=== PATIENT | male | born 1985 | race Caucasian/White ===

== ENCOUNTER 2019-06-06 16:02 | Emergency (ER) | payer MEDICAID ==
[~2019-06-06] VITALS: Ht 167.6 cm; Wt 109.1 kg
--- NOTE | 2019-06-06 16:30 | NUR ---
PT TAKEN TO ROOM 14 THAT HAS BEEN PREPARED FOR AN SI/MENTALHEALTH PT. SECURITY REMOVES A KNIFE FROM PT'S BELONGINGS. PT PLACED IN GREEN SCRUBS. GEORGE MELLO IN ROOM TO SYLVIA PT. PT WAS RECENTLY DC'D FROM [employer] [facility] AND WAS TOLD THAT THEY WOULD GIVE HIM A BUS TICKET BACK TO [place] WHERE HE IS FROM AND WHERE HE HAS A SUPPORT SYSTEM. PT WENT TO [facility] TO [place] T[place] HIS RX BUT THE DOCTOR HADNT CALLED IN THE RX OR THEY WERE NOT READY FOR PICKUP. PT THEN TOOK EIGHT OF HIS ADDERALL XL 20MG AT 3PM. PT STATES HE IS BIPOLAR AND DOES HAVE A HX OF SI. FINAL CANOE INSPECTOR IN ROOM TO DRAW BLOOD.
[2019-06-06 16:46] LABS: BASOPHILS # (AUTO) 0.1 X10'3 (0-0.2); EOSINOPHILS # (AUTO) 0.1 X10'3 (0-0.9); MEAN PLATELET VOLUME 8.1 FL (7.4-10.4); MONOCYTES # (AUTO) 0.8 X10'3 (0-0.9); PLATELET COUNT 232 X10'3 (140-440)
[2019-06-06 16:48] LABS: EOSINOPHILS % (AUTO) 0.8 % (0-6); HEMATOCRIT 51.9 % (42.0-52.0); LYMPHOCYTES # (AUTO) 2.8 X10'3 (1.1-4.8); LYMPHOCYTES % (AUTO) 22.8 % (21-51); MEAN CORPUSCULAR HEMOGLOBIN 32.8 PG (27.0-31.0); MEAN CORPUSCULAR HGB CONC 35.1 g/dL (33.0-36.5); MEAN CORPUSCULAR VOLUME 93.6 FL (78-98); MONOCYTES % (AUTO) 6.6 % (2-12); NEUTROPHILS # (AUTO) 8.3 X10'3 (1.8-7.7); NEUTROPHILS % (AUTO) 68.8 % (42-75); RED BLOOD COUNT 5.55 X10'6 (4.70-6.10); RED CELL DISTRIBUTION WIDTH 13.4 % (11.5-14.5); WHITE BLOOD COUNT 12.1 X10'3 (4.5-11.0)
[2019-06-06 16:51] LABS: HEMOGLOBIN 18.2 g/dl (14.0-17.9)
[2019-06-06 17:03] LABS: ALANINE AMINOTRANSFERASE 56 U/L (12-78); ALBUMIN 4.1 G/DL (3.4-5.0); ALBUMIN/GLOBULIN RATIO 1.1 (1.1-1.5); ALKALINE PHOSPHATASE 69 IU/L (46-116); ANION GAP 10 (8-16); ASPARTATE AMINO TRANSFERASE 21 U/L (10-37); BILIRUBIN,TOTAL 0.3 MG/DL (0.1-1.0); BLOOD UREA NITROGEN 15 MG/DL (7-18); BUN/CREATININE RATIO 15.5 (5.4-32.0); CHLORIDE 104 MMOL/L (99-107); CREATININE 0.97 MG/DL (0.60-1.10); GLUCOSE 97 MG/DL (70-104); POTASSIUM 4.1 MMOL/L (3.5-5.1); SODIUM 141 MMOL/L (135-145); TOTAL CARBON DIOXIDE 27.3 MMOL/L (24-32); TOTAL PROTEIN 7.7 G/DL (6.4-8.2); eGFR 89 ML/MIN
[2019-06-06 17:03] LABS: CLARITY,URINE CLEAR (Clear); COLOR,URINE YELLOW (Yellow); GLUCOSE, URINE NEGATIVE (Neg); KETONES,URINE NEGATIVE (Neg); LEUKOCYTE ESTERASE ,URINE NEGATIVE (Neg); NITRITES, URINE NEGATIVE (Neg); OCCULT BLOOD,URINE NEGATIVE (Neg); PROTEIN,URINE NEGATIVE (Neg); UROBILINOGEN,URINE 0.2 E.U/dL (0.2-1.0)
[2019-06-06 17:05] LABS: UA COLLECTION TYPE URINAL
[2019-06-06 17:11] LABS: URINE AMPHETAMINE SCREEN POSITIVE (Neg); URINE BARBITUATE SCREEN NEGATIVE (Neg); URINE BENZODIAZEPINES SCREEN NEGATIVE (Neg); URINE CANNABINOID SCREEN NEGATIVE (Neg); URINE COCAINE SCREEN NEGATIVE (Neg); URINE METHADONE SCREEN NEGATIVE (Neg); URINE OPIATE SCREEN NEGATIVE (Neg); URINE PHENCYCLIDINE SCREEN NEGATIVE (Neg)
[2019-06-06 17:12] LABS: ETHANOL < 0.010 GM/DL (0.0-0.010)
--- NOTE | 2019-06-06 17:20 | NUR ---
CALLED POISON CONTROL NOTIFIED PT INGESTED 8 20 MG ADDERALL AT APPROX 1500 TODAY, THEY RECOMMEND LAB TYLENOL, ASPIRIN, EKG, MONITOR PT FOR CARDIAC AND POSSIBLE SEIZURE, GEORGE NOTIFIED, VERBAL ORDER RECEIVED FROM GEORGE
[2019-06-06] MEDS ORDERED: AMPH20TA3 PO (17:43)
[2019-06-06] MEDS ORDERED: LISI-600 PO (17:43)
[2019-06-06] MEDS ORDERED: QUET300T19 PO (17:43)
[2019-06-06] MEDS ORDERED: LITH300C PO (17:43)
--- NOTE | 2019-06-06 17:46 | NUR ---
PT HOME ADDERALL BOTTLE BROUGHT DOWN TO PHARMACY TO STORE DURING ADMISSION
[2019-06-06 18:02] LABS: ACETAMINOPHEN < 2.0 UG/ML (10-30)
--- NOTE | 2019-06-06 18:16 | NUR ---
EKG COMPLETED RECOMMENDED BY POISON CONTROL AND ELECTRODES APPLIED RECOMMENDED.
--- NOTE | 2019-06-06 19:00 | NUR ---
Patient sleeping quietly. In view from nursing station. Q15 minute rounding for patient safety.
--- NOTE | 2019-06-06 23:38 | NUR ---
Patient is awake and cooperative with staff. He is well oriented. Chief complaint is anxiety and problems sleeping. Patients thought is linear.
[2019-06-07] MEDS ORDERED: AMPHETAMINE PO SCH (00:20)
[2019-06-07] MEDS ORDERED: DEXTROAMPHETAMINE PO SCH (00:20)
[2019-06-07] MEDS: lisinopril 20mg tablet PO SCH ×2 (00:43→08:26)
[2019-06-07] MEDS: quetiapine 100mg tablet PO SCH ×2 (00:43→20:48)
[2019-06-07] MEDS: lithium carbonate 300mg SR tablet (LithoBID) PO SCH ×2 (00:44→20:48)
--- NOTE | 2019-06-07 01:40 | NUR ---
Patient is compliant with Rx meds. He is now sleeping quietly.
[2019-06-07] MEDS: AMPHETAMINE PO SCH ×2 (08:24→14:32)
[2019-06-07] MEDS: DEXTROAMPHETAMINE PO SCH ×2 (08:24→14:32)
--- NOTE | 2019-06-08 02:53 | NUR ---
BREAKING PRIMARY RN, PT IS IN BED LAYING ON HIS RIGHT SIDE, NO S/S OF DISTRESS, WILL CONTINUE TO MONITOR
--- NOTE | 2019-06-08 05:05 | NUR ---
Patient sleeping. Up once during the night to the bathroom. Normal gait. Patient is medication compliant.
[2019-06-08 08:10] LABS: BASOPHILS # (AUTO) 0.1 X10'3 (0-0.2); BASOPHILS % (AUTO) 0.7 % (0-1); EOSINOPHILS # (AUTO) 0.2 X10'3 (0-0.9); EOSINOPHILS % (AUTO) 1.8 % (0-6); HEMATOCRIT 50.9 % (42.0-52.0); HEMOGLOBIN 17.7 g/dl (14.0-17.9); LYMPHOCYTES # (AUTO) 3.1 X10'3 (1.1-4.8); LYMPHOCYTES % (AUTO) 34.3 % (21-51); MEAN CORPUSCULAR HEMOGLOBIN 33.2 PG (27.0-31.0); MEAN CORPUSCULAR HGB CONC 34.8 g/dL (33.0-36.5); MEAN CORPUSCULAR VOLUME 95.3 FL (78-98); MEAN PLATELET VOLUME 8.7 FL (7.4-10.4); MONOCYTES # (AUTO) 0.8 X10'3 (0-0.9); MONOCYTES % (AUTO) 8.5 % (2-12); NEUTROPHILS # (AUTO) 4.9 X10'3 (1.8-7.7); NEUTROPHILS % (AUTO) 54.7 % (42-75); PLATELET COUNT 201 X10'3 (140-440); RED BLOOD COUNT 5.34 X10'6 (4.70-6.10); RED CELL DISTRIBUTION WIDTH 13.1 % (11.5-14.5)
[2019-06-08] MEDS: lisinopril 20mg tablet PO SCH (08:40)
[2019-06-08] MEDS: DEXTROAMPHETAMINE PO SCH ×2 (08:41→12:30)
[2019-06-08] MEDS: AMPHETAMINE PO SCH ×2 (08:41→12:30)
--- NOTE | 2019-06-08 09:00 | NUR ---
Pt took am meds, ate breakfast and is now resting in bed quietly.
--- NOTE | 2019-06-08 10:02 | NUR ---
Pt ambulated to bathroom and back to bed, pt remains without needs/requests.
--- NOTE | 2019-06-08 14:30 | NUR ---
NURSE TO NURSE REPORT GIVEN TO [facility]. ALL QUESTIONS ANSWERED. SHE STATES SHE WILL PRESENT TO THE MD AND LET THE REAL OFFICE KNOW IF HE IS ACCEPTED. SHE STATES THEY ARE FULL AT THIS TIME
--- NOTE | 2019-06-08 15:00 | NUR ---
Report received from YAIMA Hector. All questions answered. I agree with previously documented assessment and will assume care of patient now. Patient resting in bed.
[2019-06-08] MEDS ORDERED: LORazepam 1 MG tablet PO ONE (15:10)
--- NOTE | 2019-06-08 15:12 | NUR ---
Patient c/o anxiety. Notified Dr. Fernandez and order received for 1mg Ativan PO x1 dose.
--- NOTE | 2019-06-08 16:00 | NUR ---
Patient resting comfotably in bed. Reports reduced anxiety after of one time dose of ativan. Patient up to bathroom.
--- NOTE | 2019-06-08 18:59 | NUR ---
Nursing Note: Pt laying in bed on his back reading a book. He is calm and cooperative. Pt reports feeling depressed with suicidal thoughts. Will continue to monitor.
[2019-06-08] MEDS: lithium carbonate 300mg SR tablet (LithoBID) PO SCH (20:35)
[2019-06-08] MEDS: quetiapine 100mg tablet PO SCH (20:39)
--- NOTE | 2019-06-08 20:49 | NUR ---
Nursing Note: Pt compliant with medication administration. No S&S of distress, will continue to monitor.
--- NOTE | 2019-06-08 21:45 | NUR ---
Nursing Note: Pt laying in bed, reading a book. No S&S of distress, will continue to monitor.
--- NOTE | 2019-06-08 23:45 | NUR ---
Nursing Note: Pt laying on back, eyes closed, appears asleep. Respirations even and unlabored, no S&S of distress, will continue to monitor.
--- NOTE | 2019-06-09 00:56 | NUR ---
Nursing Note: Pt laying on his L side, RR even and unlabored, no S&S of distress, will continue to monitor.
--- NOTE | 2019-06-09 02:28 | NUR ---
Nursing Note: Pt laying L side, eyes closed, RR even and unlabored, no S&S of distress, will continue to monitor.
--- NOTE | 2019-06-09 04:29 | NUR ---
Nursing Note: Pt laying on his sleeping on his back, RR even and unlabored, no S&S of distress, will continue to monitor.
--- NOTE | 2019-06-09 05:51 | NUR ---
Nursing Note: Pt laying on his back, eyes closed, no S&S of distress, respirations even and unlabored, will continue to monitor.
[2019-06-09] MEDS: AMPHETAMINE PO SCH ×2 (09:00→14:09)
[2019-06-09] MEDS: lisinopril 20mg tablet PO SCH (09:00)
[2019-06-09] MEDS: DEXTROAMPHETAMINE PO SCH ×2 (09:00→14:09)
--- NOTE | 2019-06-09 13:44 | NUR ---
Breaking Primary RN, Pt lying on back in his bed, no acute distress observed. Contacted Pharmacy to prepare Pt's Own Medication to be given.
--- NOTE | 2019-06-09 16:09 | NUR ---
CONTACTED [facility] @ [phone]. SPOKE TO GINA. COMMUNICATED THAT [facility] HAS OPEN BEDS. WILL COMMUNICATE WITH CRISIS BINDING DYER AND CONTACT [facility] IF ADMISSION IS AUTHORIZED BY [facility]. WILL NOTIFY [facility] CHARGE NURSE.
--- NOTE | 2019-06-09 18:30 | NUR ---
Received report from YAIMA Worley. Patient is awake and alert on room air, in no apparent distress. In nurse's view. Will continue to monitor.
--- NOTE | 2019-06-09 19:12 | NUR ---
Patient will be admitted to [facility] to room 330A.
[2019-06-09] MEDS: quetiapine 100mg tablet PO SCH (21:01)
[2019-06-09] MEDS: lithium carbonate 300mg SR tablet (LithoBID) PO SCH (21:01)
--- NOTE | 2019-06-09 21:24 | NUR ---
Patient escorted off unit on wheelchair by CHANTEL Kirby PCT. All belongings sent with patient.
[2019-06-09 21:25] VITALS: BP 124/84
== END 2019-06-09 21:24 ==
LOC: ER 16:03
DX: T43.622A Poisoning by amphetamines, intentional self-harm, initial encounter (principal); F31.9 Bipolar disorder, unspecified; F20.9 Schizophrenia, unspecified; Z79.899 Other long term (current) drug therapy; Z59.0 Homelessness; Z56.0 Unemployment, unspecified; Y92.89 Other specified places as the place of occurrence of the external cause
CPT/HCPCS: 36415; 80053; 80305; 80320; 80329; 81003; 84443; 85025; 93005; 99284; 99285

== ENCOUNTER 2019-06-09 20:25 | Inpatient (IN) | payer MEDICAID ==
[~2019-06-09] VITALS: Ht 182.9 cm; Wt 114.1 kg
[~2019-06-09 20:25] MED LIST: AMPH20TA3 PO; LISI-600 PO; LITH300C PO; QUET300T19 PO
[2019-06-09] MEDS ORDERED: mag hydrox/Alum hydrox/simeth 30ml oral suspension PO ONE (20:45)
[2019-06-09] MEDS ORDERED: acetaminophen 325mg tablet PO PRN ×2 (20:45)
[2019-06-09] MEDS ORDERED: hydrOXYzine 25 MG tablet PO PRN (20:45)
[2019-06-09] MEDS ORDERED: magnesium hydroxide 30ml (MOM) UD suspension PO ONE (20:45)
[2019-06-09] MEDS ORDERED: LORazepam 1 MG tablet PO PRN (20:45)
[2019-06-09] MEDS ORDERED: loperamide 2mg capsule PO PRN (20:50)
[2019-06-09] MEDS: quetiapine 100mg tablet PO SCH (21:00)
[2019-06-09] MEDS ORDERED: lithium carbonate 150mg capsule PO SCH (21:00)
[2019-06-09 21:30] VITALS: BP 129/86
[2019-06-09] MEDS ORDERED: mag hydrox/Alum hydrox/simeth 30ml oral suspension PO PRN (22:15)
[2019-06-09] MEDS ORDERED: magnesium hydroxide 30ml (MOM) UD suspension PO PRN (22:15)
[2019-06-09] MEDS ORDERED: traZODone 50mg tablet PO PRN (22:20)
--- NOTE | 2019-06-10 04:03 | NUR ---
NURSING ADMIT NOTE: LEGAL HOLD: 5150 for DTS. Hx SI, depression, PTSD, childhood trauma, substance use. SBAR REPORT: New admit. REASON FOR ADMIT: Client's sister is recently (one month ago). Client reports that his current depression and thoughts of suicide began after his sisters . Client was in [employer] and [facility] to the [facility]. He had been told that the mission would give him a bus ticket to [place], where the client owns the family home with his brother. Client reports his support system is in [place]. Client reported to [employer] he was having SI with thoughts of hanging himself from a [address]. He was then brought to the ED by [employer]. Client has prior suicide attempts. He attempted to hang himself and was found by his brother. Client also has a hx of cutting his arms. Hx substance use. Drinks 1/5th Fireball Whiskey daily. Meth, THC, and opiate use. Denies ever having withdrawal symptoms. THIS SHIFT: Client arrived at 21:30 accompanied by Joce Salvador. Arrived in a wheel chair. Client was escorted to the shower, a skin assessment was performed,, and his personal belongings were inventoried. Client received PM meds in the ED. Client was cooperative. Affect and mood are depressed. He expresses concern about getting transportation back to [place]. ASSESSMENT: S/I, H/I: SI with prior SA. A/VH: Denies. ADL's: Independent. Group attendance: N/A. Were meds taken: In ED. Any med S/E: None reported. MSE: Appearance: Good hygiene. Client is missing all teeth. Eye contact: Direct. Behavior: Cooperative. Speech: Normal volume and rate. Mood: Depressed. Affect: Blunted. Thought process: Linear and connected. Insight: Poor. Judgment: Poor. INTERVENTIONS: PRN's used: No. Therapeutic interventions: Q 15 min checks for safety. 1:1. Restraints/seclusion/emergency medication: N/A. Justification of Continued Inpatient Treatment: Client scored high on lethality assessment. Client appears very depressed and can not contract for safety at this time.
[2019-06-10 08:00] VITALS: BP 121/60
[2019-06-10] MEDS: nicotine 21mg patch - 24 hr TD SCH (08:09)
[2019-06-10] MEDS: lisinopril 20mg tablet PO SCH (08:09)
[2019-06-10] MEDS ORDERED: tuberculin, purif. prot. deriv. 5 units/0.1ml ID ONE (10:00)
[2019-06-10 10:41] LABS: HEMOGLOBIN A1C 4.9 % (4.5-6.2)
[2019-06-10 10:53] LABS: CHOL/HDL RATIO 5.7 (0.00-4.99); CHOLESTEROL 164 MG/DL (0-200); HDL CHOLESTEROL 29 MG/DL (35-60); LDL CHOLESTEROL 92 MG/DL (50-100); TRIGLYCERIDES 384 MG/DL (20-135)
[2019-06-10] MEDS ORDERED: buPROPion SR 150mg tablet PO ONE (13:55)
--- NOTE | 2019-06-10 14:27 | NUR ---
Nursing Progress Note: Legal hold: 5150 Client on involuntary status for DTS Report received from nurse Allyson Zavaleta RN with use of SBAR. Why are they here: Client's sister is recently (one month ago). Client reports his current depression and thoughts of suicide began after his sisters . Client was in [employer] and discharged to the mission. He had been told that the mission would give him a bus ticket to [place], where the client owns the family home with his brother. Client reports his support system is in [place]. Client reported to D he was having SI with thoughts of hanging himself from a [address]. He was then brought to the ED by [employer]. Client has prior suicide attempts. He attempted to hang himself and was found by his brother. Client also has a hx of cutting his arms. Hx substance use. Drinks 1/5th Fireball Whiskey daily. Meth, THC, and opiate use. Denies ever having withdrawal symptoms. Assessment What has happened this shift: Client asleep at the start of the shift. During am medication pass and assessment client shared with this sports book writer the recent of his sister from liver disease and talked about their relationship. He reports his depression 05/27. He was started on Wellbutrin today and will be titrated up if needed. He slept on and off throughout the day. He attended afternoon group and appeared to be participating w/peers. S/I, H/I: SI with prior suicide attempt A/VH: Denies. ADL's: Independent. Group attendance: N/A. Were Meds taken: Yes; Wellbutrin added today Any med S/E: None reported or observed MSE: Appearance: Good hygiene. Eye contact: Direct. Behavior: Isolates; reports depression Speech: WNL's rate, rhythm and volume Mood: Depressed; somber Affect: Blunted Thought process: Hopeless; focused on returning home Thought content: the loss of a sister and his mother four years ago Insight: Poor. Judgment: Poor. INTERVENTIONS: PRN's used: No. Therapeutic interventions: provided therapeutic communication and active listening, medication administration/education/monitoring, encouraged to attend groups and shower, monitored q15min for safety. Restraints/seclusion/emergency medication: N/A. Justification of Continued Inpatient Treatment: Client scored high on lethality assessment. Client appears very depressed and can not contract for safety at this time.
[2019-06-10 19:52] VITALS: BP 124/77
--- NOTE | 2019-06-10 20:30 | NUR ---
DISCHARGE PLANNING: Met w/ pt briefly to discuss discharge. Pt has been to the [facility] before but is unsure if he could return. he would really, really like to not have to go to the [facility]. Pt would really like to go home when he's ready to discharge but needs a bus ticket. Pt confirmed he can verify an address and phone number. He has heard of Mama March and would be willing to call her and talk w/ her about a bus ticket home. Gave him a copy of her card to call. No D/C date has been discussed yet. ROSLYN Sexton
[2019-06-10] MEDS: quetiapine 100mg tablet PO SCH (20:54)
[2019-06-10] MEDS: lithium carbonate 150mg capsule PO SCH (20:54)
--- NOTE | 2019-06-11 00:48 | NUR ---
Nursing Progress Note: Legal hold: 5150 Exp 06/12 @ 2130 Client on involuntary status for DTS Report received from nurse YAIMA Roca with use of SBAR. Why are they here: Client's sister is recently (one month ago). Client reports his current depression and thoughts of suicide began after his sisters . Client was in [employer] and discharged to the mission. He had been told that the mission would give him a bus ticket to [place], where the client owns the family home with his brother. Client reports his support system is in [place]. Client reported to [employer] he was having SI with thoughts of hanging himself from a [address]. He was then brought to the ED by [employer]. Client has prior suicide attempts. He attempted to hang himself and was found by his brother. Client also has a hx of cutting his arms. Hx substance use. Drinks 1/5th Fireball Whiskey daily. Meth, THC, and opiate use. Denies ever having withdrawal symptoms. Assessment What has happened this shift: Pt was in T.V room interacting with other peers at shift change. Pt is 1:1 assessment performed at bedside. Pt is subdued and reports his depression 04/26. Pt is guarded, but answers questions. Pt reports SI with a plan to [place] himself [place] an [place] [place]. Pt can contract for safety while he is on unit. Pt really wants to be discharged to [place] where he states he has a good support system. Pt's Gerster was reduced to 600 mg HS from 900mg. Gerster level draw for tomorrow morning. Pt kept Nicotine patch on - pt was educated on adverse side effects of sleeping in patch. Pt medication compliant. S/I, H/I: SI with prior suicide attempt. Plan to hang self [place] an [place] A/VH: Pt. denies. None observed ADL's: Independent. Group attendance: fast food shift supervisor, no group Were Meds taken: Medication compliant. Gerster being decreased. Any med S/E: None reported or observed Mental Status Exam: Appearance: Neat and clean, wearing green scrubs, missing all teeth Eye contact: Direct. Behavior: Isolates; reports depression, cooperative Speech: WNL's rate, rhythm and volume Mood: Depressed; somber Affect: Blunted Thought process: Hopeless; focused on returning home Thought content: The loss of a sister and his mother Insight: Poor. Judgment: Poor. INTERVENTIONS: PRN's used: None Therapeutic interventions: provided therapeutic communication and active listening, medication administration/education/monitoring, encouraged to attend groups and shower, monitored Q15min for safety. Restraints/seclusion/emergency medication: N/A. Justification of Continued Inpatient Treatment: Client scored high on lethality assessment. Client appears very depressed and can not contract for safety at this time.
[2019-06-11] MEDS: lisinopril 20mg tablet PO SCH (07:31)
[2019-06-11] MEDS: nicotine 21mg patch - 24 hr TD SCH (07:32)
[2019-06-11] MEDS ORDERED: buPROPion SR 150mg tablet PO SCH (08:00)
[2019-06-11 08:17] VITALS: BP 110/58
[2019-06-11] MEDS: NICOTINE POLACRILEX 2 MG LOZENGE BC PRN ×2 (14:51→19:49)
[2019-06-11] MEDS ORDERED: buPROPion SR 150mg tablet PO ONE (15:30)
--- NOTE | 2019-06-11 15:30 | NUR ---
Nursing Progress Note: Ryne Legal hold: 5150 Exp 06/12 @ 2130 Client on involuntary status for DTS Report received from [facility] Shift Nurse Why are they here: Client's sister is recently (one month ago). Client reports his current depression and thoughts of suicide began after his sisters . Client was in [employer] and discharged to the mission. He had been told that the mission would give him a bus ticket to [place], where the client owns the family home with his brother. Client reports his support system is in [place]. Client reported to D he was having SI with thoughts of hanging himself from a [address]. He was then brought to the ED by D. Client has prior suicide attempts. He attempted to hang himself and was found by his brother. Client also has a hx of cutting his arms. Hx substance use. Drinks 1/5th Fireball Whiskey daily. Meth, THC, and opiate use. Denies ever having withdrawal symptoms. Assessment What has happened this shift: Client was in bed to start shift. Compliant with am assessment and medications. No somatic complaints with first assessment. Client currently denies thoughts of harm to self or others. Client will seek out staff if he starts to feel as if he may harm himself. Verbally contracted for safe unit behaviors. Client has spent the majority of morning in his room resting. Client presented for lunch and then was more social on the unit with peers as well as staff. Client is a little guarded when questioned about circumstances that led to hospitalization but did allow that he is, "torn up" over the of his sister. He went on to say, "she was my rock". Client wants to discharge and go to [place] with his, "people". Client presented as tearful and is not able to contract for safe behaviors at this time. Client will seek Staff if he is unable to control the feelings to harm himself. S/I, H/I: SI with prior suicide attempt. Plan to [place] self [place] A/VH: Pt. denies. None observed ADL's: Independent. Group attendance: shank cementer hand, no group Were Meds taken: Medication compliant. Whitaker being decreased. Any med S/E: None reported or observed Mental Status Exam: Appearance: Neat and clean, wearing green scrubs Eye contact: Direct. Behavior: Isolates; reports depression, cooperative Speech: WNL's rate, rhythm and volume Mood: Depressed; somber Affect: Blunted Thought process: Hopeless; focused on returning home Thought content: The loss of a sister and his mother Insight: Poor. Judgment: Poor. INTERVENTIONS: PRN's used: None Therapeutic interventions: provided therapeutic communication and active listening, medication administration/education/monitoring, encouraged to attend groups and shower, monitored Q15min for safety. Restraints/seclusion/emergency medication: N/A. Justification of Continued Inpatient Treatment: Client scored high on lethality assessment. Client appears very depressed and can not contract for safety at this time.
[2019-06-11] MEDS: diphenhydrAMINE 25mg capsule PO PRN (17:41)
[2019-06-11] MEDS: haloperidol 5mg tablet PO PRN (17:41)
[2019-06-11 19:57] VITALS: BP 128/82
[2019-06-11 20:06] VITALS: BP 128/82
[2019-06-11] MEDS: omega-3 acid ethyl esters 1GM capsule PO SCH (20:52)
[2019-06-11] MEDS: quetiapine 100mg tablet PO SCH (20:52)
[2019-06-11] MEDS: lithium carbonate 150mg capsule PO SCH (20:53)
--- NOTE | 2019-06-11 22:13 | NUR ---
Nursing Progress Note: Legal hold: 5150 Exp 06/12 @ 2130 Client on involuntary status for DTS Report received from nurse YAIMA Roca with use of SBAR. Why are they here: Client's sister is recently (one month ago). Client reports his current depression and thoughts of suicide began after his sisters . Client was in [employer] and discharged to the mission. He had been told that the mission would give him a bus ticket to [place], where the client owns the family home with his brother. Client reports his support system is in [place]. Client reported to D he was having SI with thoughts of hanging himself from a [address]. He was then brought to the ED by [employer]. Client has prior suicide attempts. He attempted to hang himself and was found by his brother. Client also has a hx of cutting his arms. Hx substance use. Drinks 1/5th Fireball Whiskey daily. Meth, THC, and opiate use. Denies ever having withdrawal symptoms. Assessment What has happened this shift: Pt was in rec room interacting appropriately with his peers at shift change. Pt reports 6/10 depression, but is able to contract for safety on the unit. Pt is later seen walking the halls talking and smiling with another peer. Pt denies SI at the moment, but fluctuates again later in the shift. Pt's Seroquel was decreased to 200 mg HS "I slept until 1200 today." Pt is focused on discharge, but doesn't feel he will be safe if discharged to soon. Pt's Nicotine patch was removed and appropriately disposed of. S/I, H/I: Pt fluctuates with feeling suicidal. Pt verbally contracts for safety on the unit. A/VH: Pt. denies. None observed ADL's: Independent. Group attendance: slot shift supervisor, no group Were Meds taken: Medication compliant. Penelope being decreased. Any med S/E: None reported or observed Mental Status Exam: Appearance: Neat and clean, wearing green scrubs, missing all teeth Eye contact: Direct. Behavior: Guarded; reports depression, cooperative Speech: WNL's rate, rhythm and volume Mood: Depressed; somber Affect: Constricted Thought process: Hopeless; focused on returning home Thought content: Getting better and being discharged to [place] Insight: Poor. Judgment: Poor. INTERVENTIONS: PRN's used: Nicotine lozenge Therapeutic interventions: provided therapeutic communication and active listening, medication administration/education/monitoring, encouraged to attend groups and shower, monitored Q15min for safety. Restraints/seclusion/emergency medication: N/A. Justification of Continued Inpatient Treatment: Client scored high on lethality assessment on admittance. Client continues to present as depressed and fluctuates on jaskaran for safety. Pt continues to require medication management a therapeutic milieu to interrupt current crisis.
[2019-06-12 08:00] VITALS: BP 118/69
[2019-06-12] MEDS: omega-3 acid ethyl esters 1GM capsule PO SCH ×2 (08:17→20:24)
[2019-06-12] MEDS: buPROPion SR 150mg tablet PO SCH ×2 (08:17→12:59)
[2019-06-12] MEDS: nicotine 21mg patch - 24 hr TD SCH (08:20)
[2019-06-12] MEDS: lisinopril 20mg tablet PO SCH (08:22)
[2019-06-12] MEDS: NICOTINE POLACRILEX 2 MG LOZENGE BC PRN ×3 (14:28→21:00)
--- NOTE | 2019-06-12 17:42 | NUR ---
Nursing Progress Note: Legal hold: 5150 Exp 06/12 @ 2130 Client on involuntary status for DTS Report received from [facility] Shift Nurse Why are they here: Client's sister is recently (one month ago). Client reports his current depression and thoughts of suicide began after his sisters . Client was in [employer] and discharged to the mission. He had been told that the mission would give him a bus ticket to [place], where the client owns the family home with his brother. Client reports his support system is in [place]. Client reported to D he was having SI with thoughts of hanging himself from a [address]. He was then brought to the ED by [employer]. Client has prior suicide attempts. He attempted to hang himself and was found by his brother. Client also has a hx of cutting his arms. Hx substance use. Drinks 1/5th Fireball Whiskey daily. Meth, THC, and opiate use. Denies ever having withdrawal symptoms. Assessment What has happened this shift: Pt up and visible on the unit. Pt did attend groups and was interactive with peers and staff. Pt has flat affect and continues to endorse depression with suicidal ideation. Pt c/o anxiety at some point after lunch and received a nicotine lozenge. No further complaints. Pt denies a/v hallucinations. Pt did attend groups. S/I, H/I: SI with prior suicide attempt. Plan to [place] self [place] A/VH: Pt. denies. None observed ADL's: Independent. Group attendance: yes Were Meds taken: Medication compliant. [place] being decreased. Any med S/E: None reported or observed Mental Status Exam: Appearance: Neat and clean, wearing green scrubs Eye contact: Direct. Behavior: Isolates; reports depression, cooperative Speech: WNL's rate, rhythm and volume Mood: Depressed; somber Affect: Blunted Thought process: Hopeless; focused on returning home Thought content: The loss of a sister and his mother Insight: Poor. Judgment: Poor. INTERVENTIONS: PRN's used: nicotine lozenge Therapeutic interventions: provided therapeutic communication and active listening, medication administration/education/monitoring, encouraged to attend groups and shower, monitored Q15min for safety. Restraints/seclusion/emergency medication: N/A. Justification of Continued Inpatient Treatment: Client scored high on lethality assessment. Client appears very depressed and can not contract for safety at this time.
[2019-06-12 20:00] VITALS: BP 118/76
[2019-06-12] MEDS: lithium carbonate 150mg capsule PO SCH (20:24)
[2019-06-12] MEDS: quetiapine 100mg tablet PO SCH (20:24)
--- NOTE | 2019-06-13 02:02 | NUR ---
Nursing Progress Note: Legal hold: 5150 Exp 06/12 @ 2130 Client on involuntary status for DTS Report received from [facility] Charge Nurse Why are they here: Client's sister is recently (one month ago). Client reports his current depression and thoughts of suicide began after his sisters . Client was in [employer] and discharged to the mission. He had been told that the mission would give him a bus ticket to [place], where the client owns the family home with his brother. Client reports his support system is in [place]. Client reported to [employer] he was having SI with thoughts of hanging himself from a [address] [place]. He was then brought to the ED by [employer]. Client has prior suicide attempts. He attempted to hang himself and was found by his brother. Client also has a hx of cutting his arms. Hx substance use. Drinks 1/5th Fireball Whiskey daily. Meth, THC, and opiate use. Denies ever having withdrawal symptoms. Assessment What has happened this shift: Pt up on unit at start of shift requested and given a nicotine lozenge. Pt socializing with staff and other pts. Pt says he is depressed and still feeling suicidal did not have a specific plan. His affect is cheerful he laughs and smiles easily. Played a board game with another pt. Went to sleep without problems sleeping now S/I, H/I: SI with prior suicide attempt. Plan to [place] self [place] A/VH: Pt. denies. None observed ADL's: Independent. Group attendance: yes Were Meds taken: Medication compliant. Kress being decreased. Any med S/E: None reported or observed Mental Status Exam: Appearance: Neat and clean, wearing green scrubs Eye contact: Direct. Behavior: Socializing reports depression, cooperative Speech: WNL's rate, rhythm and volume Mood: Depressed per pt Affect: Bright cheerful Thought process: Organized Thought content: Going to [place] Insight: Poor. Judgment: Poor. INTERVENTIONS: PRN's used: nicotine lozenge Therapeutic interventions: provided therapeutic communication and active listening, medication administration/education/monitoring, encouraged to attend groups and shower, monitored Q15min for safety. Restraints/seclusion/emergency medication: N/A. Justification of Continued Inpatient Treatment: Client scored high on lethality assessment. Client reports depression and SI and can not contract for safety at this time.
[2019-06-13] MEDS: lisinopril 20mg tablet PO SCH (07:54)
[2019-06-13] MEDS: buPROPion SR 150mg tablet PO SCH ×2 (07:54→13:22)
[2019-06-13] MEDS: omega-3 acid ethyl esters 1GM capsule PO SCH ×2 (07:54→20:13)
[2019-06-13] MEDS: nicotine 21mg patch - 24 hr TD SCH (07:56)
[2019-06-13 08:00] VITALS: BP 110/59
[2019-06-13] MEDS: NICOTINE POLACRILEX 2 MG LOZENGE BC PRN ×3 (10:18→19:46)
--- NOTE | 2019-06-13 11:04 | NUR ---
COLLATERAL: SW made TC to pt's family member, Ernesto at [phone]. Gely agreed to speak w/ SW and reports pt cannot return to [place] due to his hx of polysubstance use and bx. Per Gely, pt's mother a few years ago and she has allowed pt to stay with her off and on. She reports she was pt's mother's best friend and has been part of pt's life and upbringing. Per Gely, pt came to [place] to visit a family member who was dying and pt reportedly wanted to stay in [place] to "clean up" his life and stay w/ different support persons. Per Gely, pt has "burned all his bridges" in [place] and [place], therefore a new discharge plan needs to be created for pt. Jelena Bowen, Cut Off Operator Scorer SEAFOOD HARVESTER [id number] Supervised by Dave Barth, [id number]
[2019-06-13] MEDS: diphenhydrAMINE 25mg capsule PO PRN (16:14)
[2019-06-13] MEDS: haloperidol 5mg tablet PO PRN (16:14)
--- NOTE | 2019-06-13 17:41 | NUR ---
Nursing Progress Note: Legal hold: 5150 Exp 06/12 @ 2130 Client on involuntary status for DTS Report received from YAIMA Ramires with use of SBAR: Why are they here: Client's sister is recently (one month ago). Client reports his current depression and thoughts of suicide began after his sisters . Client was in [employer] and discharged to the mission. He had been told that the mission would give him a bus ticket to [place], where the client owns the family home with his brother. Client reports his support system is in [place]. Client reported to [employer] he was having SI with thoughts of hanging himself from a [address]. He was then brought to the ED by [employer]. Client has prior suicide attempts. He attempted to hang himself and was found by his brother. Client also has a hx of cutting his arms. Hx substance use. Drinks 1/5th Fireball Whiskey daily. Meth, THC, and opiate use. Denies ever having withdrawal symptoms. Assessment What has happened this shift: Pt. asleep at start of shift. Pt. is cooperative, addressing this RN by constantly saying, "Yes sir". 1:1 done at bedside. Pt. reports he feels 7/10 anxiety and depression. Pt. reports he came to [place] to live with his cousin but they had a falling out and that caused him to be homeless. So he went to the mission and after 1 night he realized he could not stay there any longer and that's when he became suicidal. Pt. is hopeful to get back to [place]. Pt. asked for nicotine lozenge to help with his anxiety. Pt. reports SI with plan to [place]. Pt. ate all his meals in the community room and took his medication. Pt. went to all groups and participated. In afternoon pt. requested PRN, stating that he was thinking about how he was going home and he became anxous. Pt. report she own 1/3 of his mother's house and shares it with his brother, pt. reports their relationship is good. S/I, H/I: SI with prior suicide attempt. Plan [place] self [place] [address] A/VH: Pt. denies. None observed ADL's: Independent. Group attendance: yes Were Meds taken: Medication compliant. Any med S/E: None reported or observed Mental Status Exam: Appearance: Neat and clean, wearing green scrubs Eye contact: Direct. Behavior: Pt. seen socializing with peers, participating in group. Speech: WNL's rate, rhythm, and volume Mood: Depressed per pt Affect: bright affect, not congruent with reported mood. Thought process: Linear Thought content: Going to [place] Insight: Poor Judgment: Poor INTERVENTIONS: PRN's used: nicotine lozenge, Haldol, Benadryl Therapeutic interventions: provided therapeutic communication and active listening, medication administration/education/monitoring, encouraged to attend groups and shower, monitored Q15min for safety. Restraints/seclusion/emergency medication: N/A. Justification of Continued Inpatient Treatment: Client scored high on lethality assessment. Client reports depression and SI and can not contract for safety at this time.
[2019-06-13] MEDS: quetiapine 100mg tablet PO SCH (20:14)
[2019-06-13] MEDS: lithium carbonate 150mg capsule PO SCH (20:14)
[2019-06-13 20:53] VITALS: BP 119/78
--- NOTE | 2019-06-14 00:28 | NUR ---
Nursing Progress Note: Legal hold: 5150 Exp 06/12 @ 2130 Client on involuntary status for DTS Report received from FARTUN Roca with use of SBAR: Why are they here: Client's sister is recently (one month ago). Client reports his current depression and thoughts of suicide began after his sisters . Client was in [place] and discharged to the mission. He had been told that the mission would give him a bus ticket to [place], where the client owns the family home with his brother. Client reports his support system is in [place]. Client reported to [employer] he was having SI with thoughts of hanging himself from a [address]. He was then brought to the ED by [employer]. Client has prior suicide attempts. He attempted to hang himself and was found by his brother. Client also has a hx of cutting his arms. Hx substance use. Drinks 1/5th Fireball Whiskey daily. Meth, THC, and opiate use. Denies ever having withdrawal symptoms. Assessment: Pt up on unit at start of shift. Pt affect bright and cheerful. Interacting with staff and other pts, laughing and talking. Pt says his depresion is "Much better" Asked if he still has SI he said "Not very often." Pt took all medications, cooperative with care, declined PRN medication for sleep . S/I, H/I: SI at times A/VH: Pt. denies. None observed ADL's: Independent. Group attendance: yes Were Meds taken: Medication compliant. Any med S/E: None reported or observed Mental Status Exam: Appearance: Neat and clean, wearing green scrubs Eye contact: Direct. Behavior: Pt. seen socializing with peers, participating in group. Speech: WNL's rate, rhythm, and volume Mood: Depressed per pt Affect: bright affect, not congruent with reported mood. Thought process: Linear Thought content: Going to [place] Insight: Poor Judgment: Poor INTERVENTIONS: PRN's used: nicotine lozenge, Maalox Therapeutic interventions: provided therapeutic communication and active listening, medication administration/education/monitoring, encouraged to attend groups and shower, monitored Q15min for safety. Restraints/seclusion/emergency medication: N/A. Justification of Continued Inpatient Treatment: Client scored high on lethality assessment. Client reports depression and SI and can not contract for safety at this time.
[2019-06-14] MEDS: omega-3 acid ethyl esters 1GM capsule PO SCH ×2 (07:44→20:35)
[2019-06-14] MEDS: lisinopril 20mg tablet PO SCH (07:45)
[2019-06-14] MEDS: nicotine 21mg patch - 24 hr TD SCH (07:46)
[2019-06-14] MEDS: buPROPion SR 150mg tablet PO SCH ×2 (07:46→13:28)
[2019-06-14 08:00] VITALS: BP 120/66
[2019-06-14] MEDS: NICOTINE POLACRILEX 2 MG LOZENGE BC PRN ×3 (11:07→20:35)
[2019-06-14] MEDS: haloperidol 5mg tablet PO PRN (15:15)
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
--- NOTE | 2019-06-14 16:57 | NUR ---
PO intake 75-100% of regular diet, meeting needs. Noted history of HTN, TG are 384, currently on regular diet. Recommend: 1. continue regular diet 2. bowel care as needed if constipation 3. weekly weights Addendum: 06/14/19 at [address] Amended: Links added.
[2019-06-14 20:00] VITALS: BP 111/78
[2019-06-14] MEDS: quetiapine 100mg tablet PO SCH (20:35)
[2019-06-14] MEDS: lithium carbonate 150mg capsule PO SCH (20:35)
--- NOTE | 2019-06-15 01:08 | NUR ---
Nursing Progress Note: Legal hold: 5250 Client on involuntary status for DTS Report received from [place] instructional systems specialist Nurse Why are they here: Client's sister is recently (one month ago). Client reports his current depression and thoughts of suicide began after his sisters . Client was in [facility] and discharged to the mission. He had been told that the mission would give him a bus ticket to [place], where the client owns the family home with his brother. Client reports his support system is in [place]. Client reported to D he was having SI with thoughts of hanging himself from a [address]. He was then brought to the ED by [employer]. Client has prior suicide attempts. He attempted to hang himself and was found by his brother. Client also has a hx of cutting his arms. Hx substance use. Drinks 1/5th Fireball Whiskey daily. Meth, THC, and opiate use. Denies ever having withdrawal symptoms. Assessment What has happened this shift: Patient is walking the halls and interacting with his peers at change of shift. He is friendly, cooperative and agrees to an assessment at his bedside. Patient appears anxious/restless during assessment fidgeting a lot and having a difficult time staying seated. He does however answer questions appropriately. Patient reports still having SI and depression stating "I still see images of me harming myself." He contracts for safety while on the unit stating he would notify staff if he felt urges to harm himself. He is compliant wit HS medications and spends time on the unit with peers before going to bed. S/I, H/I: SI with prior suicide attempt, contracts for safety. A/VH: Pt. denies. None observed ADL's: Independent. Group attendance: Yes Were Meds taken: Medication compliant. Any med S/E: None reported or observed Mental Status Exam: Appearance: Neat and clean, wearing green scrubs Eye contact: Direct. Behavior: Reports depression, cooperative Speech: Normal rate, rhythm and volume Mood: Depressed Affect: Blunted Thought process: Hopeless; focused on returning home Thought content: The loss of a sister and his mother Insight: Poor. Judgment: Poor. INTERVENTIONS: PRN's used: Nicotine lozenge Therapeutic interventions: provided therapeutic communication and active listening, medication administration/education/monitoring, encouraged to attend groups and shower, monitored Q15min for safety. Restraints/seclusion/emergency medication: N/A. Justification of Continued Inpatient Treatment: Client scored high on lethality assessment. Client appears very depressed and can not contract for safety at this time.
[2019-06-15 08:00] VITALS: BP 120/69
[2019-06-15] MEDS: nicotine 21mg patch - 24 hr TD SCH (08:00)
[2019-06-15] MEDS: omega-3 acid ethyl esters 1GM capsule PO SCH ×2 (08:00→20:35)
--- NOTE | 2019-06-15 08:00 | NUR ---
DISCHARGE PLANNING: DELVIN contacted Cinthia Macias for a bus ticket to [place] through [facility]. Cinthia reports she is in jury duty at this time, however has been in communication w/ pt and will assist him in accessing a bus ticket once jury duty has completed. Jelena Bowen, Internal Audit Senior Manager CLIENT ACCOUNT REPRESENTATIVE [id number] Supervised by Dave Barth, [id number]
[2019-06-15] MEDS: lisinopril 20mg tablet PO SCH (08:01)
[2019-06-15] MEDS: buPROPion SR 150mg tablet PO SCH (08:07)
[2019-06-15] MEDS: NICOTINE POLACRILEX 2 MG LOZENGE BC PRN ×4 (10:36→19:24)
[2019-06-15] MEDS ORDERED: buPROPion 100mg tablet PO SCH (12:19)
[2019-06-15] MEDS ORDERED: buPROPion SR 150mg tablet PO SCH (12:29)
[2019-06-15] MEDS: buPROPion 100mg tablet PO SCH (13:40)
--- NOTE | 2019-06-15 14:34 | NUR ---
Nursing Progress Note: Walker Legal hold: 5250 Client on involuntary status for DTS Report received from FARTUN Ramires Why are they here: Client's sister is recently (one month ago). Client reports his current depression and thoughts of suicide began after his sisters . Client was in [employer] and discharged to the mission. He had been told that the mission would give him a bus ticket to [place], where the client owns the family home with his brother. Client reports his support system is in [place]. Client reported to D he was having SI with thoughts of hanging himself from a [address]. He was then brought to the ED by D. Client has prior suicide attempts. He attempted to hang himself and was found by his brother. Client also has a hx of cutting his arms. Hx substance use. Drinks 1/5th Fireball Whiskey daily. Meth, THC, and opiate use. Denies ever having withdrawal symptoms. Assessment What has happened this shift: Patient in bed to begin shift. Compliant with assessment as well as medications. Client was given a prn of Haldol 5 mg per Doctors order at 1050 hours for c/o "anxiety". Client is visble on unit and social with both staff and peers. Client anticipating discharge this week but still unable to contract for safe behavior once discharged. Client has requested prn medication frequently this shift but no behavioral issues noted. S/I, H/I: SI with prior suicide attempt, contracts for safety. A/VH: Pt. denies. None observed ADL's: Independent. Group attendance: yes Were Meds taken: Medication compliant. Any med S/E: None reported or observed Mental Status Exam: Appearance: Neat and clean, wearing own clothing Eye contact: Direct. Behavior: Reports depression, cooperative Speech: Normal rate, rhythm and volume Mood: Affect is brighter Affect: Blunted Thought process: Hopeless; focused on returning home Thought content: The loss of a sister and his mother Insight: Good Judgment: Good INTERVENTIONS: PRN's used: Haldol Therapeutic interventions: provided therapeutic communication and active listening, medication administration/education/monitoring, encouraged to attend groups and shower, monitored Q15min for safety. Restraints/seclusion/emergency medication: N/A. Justification of Continued Inpatient Treatment: Client scored high on lethality assessment. Client appears very depressed and can not contract for safety at this time.
[2019-06-15] MEDS ORDERED: LORazepam 1 MG tablet PO ONE (19:05)
[2019-06-15 20:00] VITALS: BP 137/89
[2019-06-15] MEDS: lithium carbonate 150mg capsule PO SCH (20:36)
[2019-06-15] MEDS: quetiapine 100mg tablet PO SCH (20:36)
--- NOTE | 2019-06-16 05:01 | NUR ---
Nursing Progress Note: Legal hold: 5250 Client on involuntary status for DTS Report received from FARTUN Harris via SBAR Why are they here: Client's sister is recently (one month ago). Client reports his current depression and thoughts of suicide began after his sisters . Client was in [facility] and discharged to the mission. He had been told that the mission would give him a bus ticket to [place], where the client owns the family home with his brother. Client reports his support system is in [place]. Client reported to [employer] he was having SI with thoughts of hanging himself from [place] [address]. He was then brought to the ED by [employer]. Client has prior suicide attempts. He attempted to hang himself and was found by his brother. Client also has a hx of cutting his arms. Hx substance use. Drinks 1/5th Fireball Whiskey daily. Meth, THC, and opiate use. Denies ever having withdrawal symptoms. Assessment What has happened this shift: Pt pacing the halls at change of shift as he waited for his PRN Ativan 1mg Once to come through; administered to good effect-- anxiety decreased from 8/10 to 4/10. Pt states he is a "little" SI without a plan and depressed 4/10. Pt has been reflecting on his sisters passing and RN encouraged pt to discuss it with the psychiatrist as well as this is a safe environment to work through feelings. Pt says he's anxious about returning home, too, because he is afraid "something will fall through again and I won't have transportation." Pt attended snack group and was medication compliant, retiring to sleep shortly after administration. S/I, H/I: + SI, vague A/VH: Pt. denies. None observed ADL's: Independent. Group attendance: N/A Were Meds taken: Medication compliant. Any med S/E: None reported or observed Mental Status Exam: Appearance: Neat and clean, wearing green scrubs Eye contact: Direct. Behavior: Cooperative, pacing the halls Speech: Normal rate, rhythm and volume Mood: Depressed Affect: Blunted Thought process: focused on returning home, sisters Thought content: The loss of a sister Insight: Poor to fair Judgment: Poor INTERVENTIONS: PRN's used: Nicotine lozenge Therapeutic interventions: provided therapeutic communication and active listening, medication administration/education/monitoring, encouraged to attend groups and shower, monitored Q15min for safety. Restraints/seclusion/emergency medication: N/A. Justification of Continued Inpatient Treatment: Client scored high on lethality assessment. Client appears very depressed and can not contract for safety at this time.
[2019-06-16] MEDS: nicotine 21mg patch - 24 hr TD SCH (07:36)
[2019-06-16] MEDS: buPROPion 100mg tablet PO SCH ×2 (07:36→12:02)
[2019-06-16] MEDS: omega-3 acid ethyl esters 1GM capsule PO SCH ×2 (07:36→20:21)
[2019-06-16] MEDS: lisinopril 20mg tablet PO SCH (07:37)
[2019-06-16 07:56] VITALS: BP 106/77
[2019-06-16] MEDS: haloperidol 5mg tablet PO PRN (12:01)
[2019-06-16] MEDS: diphenhydrAMINE 25mg capsule PO PRN (12:01)
[2019-06-16] MEDS: NICOTINE POLACRILEX 2 MG LOZENGE BC PRN ×3 (13:48→18:55)
--- NOTE | 2019-06-16 17:09 | NUR ---
Nursing Progress Note: Legal hold: 5250 Client on involuntary status for DTS Report received from FARTUN Harris via SBAR Why are they here: Client's sister is recently (one month ago). Client reports his current depression and thoughts of suicide began after his sisters . Client was in [place] and discharged to the mission. He had been told that the mission would give him a bus ticket to [place], where the client owns the family home with his brother. Client reports his support system is in [place]. Client reported to D he was having SI with thoughts of hanging himself from [place] [address]. He was then brought to the ED by [employer]. Client has prior suicide attempts. He attempted to hang himself and was found by his brother. Client also has a hx of cutting his arms. Hx substance use. Drinks 1/5th Fireball Whiskey daily. Meth, THC, and opiate use. Denies ever having withdrawal symptoms. Assessment What has happened this shift: Pt is resting in bed peacefully at change of shift. He is pleasant and cooperative and takes all of his medications without incident. He states that his depression is 5/10 and denies SI/HI/ AH/VH. He states that he is anxious around noon and is given PRN haldol and Benadryl with good relief. He is seen after PRN administration resting in bed peacefully. He naps intermittently throughout the day. He eats his meals in the community room and states that he missed afternoon snack so yogurt and a peanut butter and jelly sandwich were provided. He states that he is "doing ok" throughout the day. He reported being anxious around 1500 and this nurse asked him to elaborate on how he was feeling. Pt states that he feels restless. Pt then requested a nicotine lozenge and states that he is going to rest for a bit prior to dinner. Will continue to monitor. S/I, H/I: denies A/VH: Pt. denies. None observed ADL's: Independent. Group attendance: N/A Were Meds taken: Medication compliant. Any med S/E: None reported or observed Mental Status Exam: Appearance: Neat and clean, wearing green scrubs Eye contact: Direct. Behavior: Cooperative Speech: Normal rate, rhythm and volume Mood: Depressed Affect: Blunted Thought process: focused on returning home, "feeling anxious" Thought content: The loss of a sister Insight: Poor to fair Judgment: Poor INTERVENTIONS: PRN's used: Nicotine lozenge, benadryl, haldol Therapeutic interventions: provided therapeutic communication and active listening, medication administration/education/monitoring, encouraged to attend groups and shower, monitored Q15min for safety. Restraints/seclusion/emergency medication: N/A. Justification of Continued Inpatient Treatment: Client scored high on lethality assessment. Client appears very depressed and can not contract for safety at this time.
[2019-06-16 20:06] VITALS: BP 118/77
[2019-06-16] MEDS: lithium carbonate 150mg capsule PO SCH (20:22)
[2019-06-16] MEDS: quetiapine 100mg tablet PO SCH (20:22)
--- NOTE | 2019-06-17 04:19 | NUR ---
Nursing Progress Note: Legal hold: 5250 Client on involuntary status for DTS Report received from FARTUN Harris via SBAR Why are they here: Client's sister is recently (one month ago). Client reports his current depression and thoughts of suicide began after his sisters . Client was in [employer] and discharged to the mission. He had been told that the mission would give him a bus ticket to [place], where the client owns the family home with his brother. Client reports his support system is in [place]. Client reported to [employer] he was having SI with thoughts of hanging himself from [place] [address] [place]. He was then brought to the ED by [employer]. Client has prior suicide attempts. He attempted to hang himself and was found by his brother. Client also has a hx of cutting his arms. Hx substance use. Drinks 1/5th Fireball Whiskey daily. Meth, THC, and opiate use. Denies ever having withdrawal symptoms. Assessment What has happened this shift: Pt awoke from nap at change of shift and requested prns for anxiety. Pt could not pinpoint why it was 7/10 but RN suggested walking or reading to assist in lowering level. Pt agreed, especially since he slept well last night and would be receiving sleep meds in an hour as part of routine medications. Anxiety is generalized, and pt remains depressed with a rating of 4/10. He wishes to go home, but knows the relationships with family are occasionally tense; pt would not elaborate further on the interpersonal dyanamics. Pt is not attending groups; Rn discussed the importance of engaging in care and encouraged pt to attend the next day; pt states he knows and will try to go tomorrow morning and afternoon. Pt medication compliant and went to bed shortly after medication pass. Pt states that the MD stated he would begin tapering the lithium. No indication of this is the MD notes, but this RN will share this information in report. S/I, H/I: Denies A/VH: Pt. denies. None observed ADL's: Independent Group attendance: N/A Were Meds taken: Medication compliant. Any med S/E: None reported or observed Mental Status Exam: Appearance: Neat and clean, wearing green scrubs Eye contact: Direct Behavior: Cooperative, pacing the halls, watching TV Speech: Normal rate, rhythm and volume Mood: Depressed Affect: Blunted with some brightening Thought process: Linear Thought content: getting home Insight: Poor to fair Judgment: Poor INTERVENTIONS: PRN's used: Nicotine lozenge Therapeutic interventions: provided therapeutic communication and active listening, medication administration/education/monitoring, encouraged to attend groups and shower, monitored Q15min for safety. Restraints/seclusion/emergency medication: N/A. Justification of Continued Inpatient Treatment: Client scored high on lethality assessment. Client appears very depressed and can not contract for safety at this time.
[2019-06-17] MEDS: omega-3 acid ethyl esters 1GM capsule PO SCH ×2 (07:23→20:29)
[2019-06-17] MEDS: nicotine 21mg patch - 24 hr TD SCH (07:23)
[2019-06-17] MEDS: buPROPion 100mg tablet PO SCH ×2 (07:23→12:03)
[2019-06-17] MEDS: lisinopril 20mg tablet PO SCH (07:24)
[2019-06-17 07:35] VITALS: BP 123/83
[2019-06-17] MEDS: NICOTINE POLACRILEX 2 MG LOZENGE BC PRN ×4 (07:49→19:44)
[2019-06-17] MEDS: hydrOXYzine 25 MG tablet PO PRN ×2 (11:13→17:13)
[2019-06-17] MEDS: naproxen 500mg tablet PO PRN (17:13)
--- NOTE | 2019-06-17 17:19 | NUR ---
Nursing Progress Note: Legal hold: 5250 Client on involuntary status for DTS Report received from FARTUN Harris via SBAR Why are they here: Client's sister is recently (one month ago). Client reports his current depression and thoughts of suicide began after his sisters . Client was in [employer] and discharged to the mission. He had been told that the mission would give him a bus ticket to [place], where the client owns the family home with his brother. Client reports his support system is in [place]. Client reported to [employer] he was having SI with thoughts of hanging himself from a [address]. He was then brought to the ED by [employer]. Client has prior suicide attempts. He attempted to hang himself and was found by his brother. Client also has a hx of cutting his arms. Hx substance use. Drinks 1/5th Fireball Whiskey daily. Meth, THC, and opiate use. Denies ever having withdrawal symptoms. Assessment What has happened this shift: Pt was resting in bed at change of shift and then seen ambulating in the [place]. Pt tried attending morning group and states "it is the same stuff we went over last Wednesday. It is nothing special or new". He reports that he will just walk around for a while". Pt states that he is anxious and gives his anxiety a 7/10. He states that he is "stressing on stuff that is going on on the outside". Educated patient on breathing exercizes and finding other things to focus on. Pt was amenable to this. Pt requested PRN for anxiety and atarax was administered. He is pleasant and cooperative with care and takes his medications without incident. He reported some pain in his left knee which is described as 7/10 and "sharp" and PRN Naprosyn was provided with moderate relief. Pt states that his depression right now is a 2/10 and that he is "doing ok". Pt is seen throughout the day socializing with other patients and observing in afternoon group but not actively participating. Will continue to monitor. S/I, H/I: Denies A/VH: Pt. denies. None observed ADL's: Independent Group attendance: N/A Were Meds taken: Medication compliant. Any med S/E: None reported or observed Mental Status Exam: Appearance: Neat and clean, wearing green scrubs Eye contact: Direct Behavior: Cooperative, pacing the halls, watching TV Speech: Normal rate, rhythm and volume Mood: Depressed Affect: Blunted with some brightening Thought process: Linear Thought content: getting home Insight: Poor to fair Judgment: Poor INTERVENTIONS: PRN's used: Nicotine lozenge, atarax, Naprosyn Therapeutic interventions: provided therapeutic communication and active listening, medication administration/education/monitoring, encouraged to attend groups and shower, monitored Q15min for safety. Restraints/seclusion/emergency medication: N/A. Justification of Continued Inpatient Treatment: Client scored high on lethality assessment. Client appears very depressed and can not contract for safety at this time.
[2019-06-17 19:57] VITALS: BP 84/54
[2019-06-17] MEDS: quetiapine 100mg tablet PO SCH (20:29)
[2019-06-17] MEDS ORDERED: lithium carbonate 150mg capsule PO SCH (21:00)
[2019-06-17 21:57] VITALS: BP 120/75
--- NOTE | 2019-06-17 23:45 | NUR ---
Nursing Progress Note: Legal hold: 5250 Client on involuntary status for DTS Report received from FARTUN Harris via SBAR Why are they here: Client's sister is recently (one month ago). Client reports his current depression and thoughts of suicide began after his sisters . Client was in [place] and discharged to the mission. He had been told that the mission would give him a bus ticket to [place], where the client owns the family home with his brother. Client reports his support system is in [place]. Client reported to [employer] he was having SI with thoughts of hanging himself from a [address]. He was then brought to the ED by [employer]. Client has prior suicide attempts. He attempted to hang himself and was found by his brother. Client also has a hx of cutting his arms. Hx substance use. Drinks 1/5th Fireball Whiskey daily. Meth, THC, and opiate use. Denies ever having withdrawal symptoms. Assessment What has happened this shift: Pt walking the unit at change of shift. He is smiling and laughing. Pt continues to focus on things that are out of his control, which in turn increases his depression and anxiety. Pt states he attended part of a group today and it "kin of helped but they talk about the same stuff every one." Pt looks forward to returning home and getting his "life back on track." Pt medication compliant and went to bed shortly after medication pass. S/I, H/I: Denies A/VH: Denies ADL's: Independent Group attendance: N/A Were Meds taken: Yes Any med S/E: None reported or observed Mental Status Exam: Appearance: Neat and clean, wearing green scrubs Eye contact: Direct Behavior: Cooperative, pacing the halls, watching TV Speech: Normal rate, rhythm and volume Mood: Depressed 4/10, Anxious 4/10 Affect: Animated Thought process: Linear Thought content: getting home Insight: Poor to fair Judgment: Poor INTERVENTIONS: PRN's used: Nicotine lozenge Therapeutic interventions: provided therapeutic communication and active listening, medication administration/education/monitoring, encouraged to attend groups and shower, monitored Q15min for safety. Restraints/seclusion/emergency medication: N/A. Justification of Continued Inpatient Treatment: Client scored high on lethality assessment. Client appears very depressed and can not contract for safety at this time.
[2019-06-18] MEDS: nicotine 21mg patch - 24 hr TD SCH (07:09)
[2019-06-18] MEDS: lisinopril 20mg tablet PO SCH (07:11)
[2019-06-18] MEDS: buPROPion 100mg tablet PO SCH ×2 (07:13→12:02)
[2019-06-18] MEDS: omega-3 acid ethyl esters 1GM capsule PO SCH ×2 (07:13→20:57)
[2019-06-18 08:00] VITALS: BP 116/69
[2019-06-18] MEDS: NICOTINE POLACRILEX 2 MG LOZENGE BC PRN ×3 (08:24→18:03)
[2019-06-18] MEDS: hydrOXYzine 25 MG tablet PO PRN ×2 (08:24→15:03)
[2019-06-18] MEDS: naproxen 500mg tablet PO PRN ×2 (08:29→18:44)
--- NOTE | 2019-06-18 10:10 | NUR ---
COUNTY UPDATE: DELVIN emailed progress notes and updates to Zack Villafana at [facility] to provide information regarding pt stay and discharge planning. Jelena Bowen, Analog Design Engineer FINANCIAL OPERATIONS CONSULTANT [id number] Supervised by Dave Barth, [id number]
--- NOTE | 2019-06-18 13:11 | NUR ---
DISCHARGE PLANNING: SW met w/ pt and learned pt sx are reducing. Per pt report, pt is likely to discharge on Wednesday or Wednesday, per his conversation w/ assigned provider. DELVIN agreed to contact Cinthia Colleen from [facility] to begin process for transportation home. DELVIN emailed the following to Cinthia: Thank you for getting back to me, Cinthia. I have met with this young man today and wanted to let you know we are likely to discharge him on 06/20/2019. Is there anything you need from me to assist him in working with you for his journey home? Please let me know. Thank you, Jelena Bowen, Supervisor Landscape PORCELAIN ENAMEL SPRAYER [id number] Supervised by Dave Barth, [id number]
--- NOTE | 2019-06-18 15:33 | NUR ---
Nursing Progress Note: Walker Legal hold: 5250 Client on involuntary status for DTS Report received from Allyson WILLOUGHBY Why are they here: Client's sister is recently (one month ago). Client reports his current depression and thoughts of suicide began after his sisters . Client was in [employer] and discharged to the mission. He had been told that the mission would give him a bus ticket to [place], where the client owns the family home with his brother. Client reports his support system is in [place]. Client reported to D he was having SI with thoughts of hanging himself from a [address]. He was then brought to the ED by D. Client has prior suicide attempts. He attempted to hang himself and was found by his brother. Client also has a hx of cutting his arms. Hx substance use. Drinks 1/5th Fireball Whiskey daily. Meth, THC, and opiate use. Denies ever having withdrawal symptoms. Assessment What has happened this shift: Client was in bed to begin the shift but woke shortly after shift change, Patient was friendly and made direct eye contact. Compliant with medications ands assessment this am. No somatic complaints offerred during assessment. Client has been ambulating on the unit and has had no behavioral issues as of this writing. Client is anticipating discharge home to [place] early this week. Client does state, " I am safe now to go home" and readily contracts fo safe unit behaviors. S/I, H/I: Denies A/VH: Denies ADL's: Independent Group attendance: yes Were Meds taken: Yes Any med S/E: None reported or observed Mental Status Exam: Appearance: Neat and clean Eye contact: Direct Behavior: Cooperative, pacing the halls, socializing on unit. Speech: Normal rate, rhythm and volume Mood: Affect: Animated Thought process: Linear Thought content: getting home Insight: Poor to fair Judgment: Poor INTERVENTIONS: PRN's used: Nicitine Lozenges Therapeutic interventions: provided therapeutic communication and active listening, medication administration/education/monitoring, encouraged to attend groups and shower, monitored Q15min for safety. Restraints/seclusion/emergency medication: N/A. Justification of Continued Inpatient Treatment: Client scored high on lethality assessment. Client appears very depressed and can not contract for safety at this time.
[2019-06-18] MEDS ORDERED: diphenhydrAMINE 25mg capsule PO ONE (16:25)
[2019-06-18] MEDS ORDERED: haloperidol 5mg tablet PO ONE (16:25)
[2019-06-18 19:47] VITALS: BP 131/87
[2019-06-18] MEDS: quetiapine 100mg tablet PO SCH (20:58)
--- NOTE | 2019-06-19 00:48 | NUR ---
Nursing Progress Note: Legal hold: 5250 Client on involuntary status for DTS Report received from FARTUN Harris via SBAR Why are they here: Client's sister is recently (one month ago). Client reports his current depression and thoughts of suicide began after his sisters . Client was in [employer] [facility] and discharged to the mission. He had been told that the mission would give him a bus ticket to [place], where the client owns the family home with his brother. Client reports his support system is in [place]. Client reported to [employer] he was having SI with thoughts of hanging himself from a [address]. He was then brought to the ED by [employer]. Client has prior suicide attempts. He attempted to hang himself and was found by his brother. Client also has a hx of cutting his arms. Hx substance use. Drinks 1/5th Fireball Whiskey daily. Meth, THC, and opiate use. Denies ever having withdrawal symptoms. Assessment What has happened this shift: Pt walking the unit at change of shift. He is engaging with staff and peers, joking and laughing. 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 "I can't wait to get back to work." Pt states he is feeling better and ready to go home. He is attending groups and [facility]. Pt retired to bed after medication pass; he requested trazadone PRN but has been sleeping well-- RN suggested patient approach her if he is unable to sleep within the hour. Pt has been sleeping comfortably with routine evening medications thus far. S/I, H/I: Denies A/VH: Denies ADL's: Independent Group attendance: N/A Were Meds taken: Yes Any med S/E: None reported or observed Mental Status Exam: Appearance: Neat and clean, wearing green scrubs Eye contact: Direct Behavior: Cooperative, pacing the halls, watching TV Speech: Normal rate, rhythm and volume Mood: Depressed 2/10, Anxious 5/10 Affect: Animated Thought process: Linear Thought content: looking forward to getting back to work and getting home Insight: Good Judgment: Good INTERVENTIONS: PRN's used: Nicotine lozenge Therapeutic interventions: provided therapeutic communication and active listening, medication administration/education/monitoring, encouraged to attend groups and shower, monitored Q15min for safety. Restraints/seclusion/emergency medication: N/A Justification of Continued Inpatient Treatment: Client scored high on lethality assessment. Client still managing anxiety but ready to discharge Wednesday or Wednesday per MD/SW notes.
[2019-06-19] MEDS: omega-3 acid ethyl esters 1GM capsule PO SCH ×2 (07:27→20:22)
[2019-06-19] MEDS: NICOTINE POLACRILEX 2 MG LOZENGE BC PRN ×4 (07:27→19:38)
[2019-06-19] MEDS: nicotine 21mg patch - 24 hr TD SCH (07:27)
[2019-06-19] MEDS: buPROPion 100mg tablet PO SCH ×2 (07:27→12:44)
[2019-06-19] MEDS: lisinopril 20mg tablet PO SCH (07:27)
[2019-06-19 08:00] VITALS: BP 115/78
[2019-06-19] MEDS: naproxen 500mg tablet PO PRN ×2 (08:26→18:05)
[2019-06-19] MEDS ORDERED: QUET300T19 PO (12:39)
[2019-06-19] MEDS ORDERED: HALO5TAB PO (12:39)
[2019-06-19] MEDS ORDERED: BUPR200T3 PO (12:39)
[2019-06-19] MEDS ORDERED: DIPH50CA39 PO (12:39)
[2019-06-19] MEDS ORDERED: OMEG1CAP PO (12:39)
[2019-06-19] MEDS ORDERED: NICO-668 BC (12:39)
[2019-06-19] MEDS ORDERED: LISI-600 PO (12:39)
[2019-06-19] MEDS: haloperidol 5mg tablet PO PRN (14:47)
[2019-06-19] MEDS: diphenhydrAMINE 25mg capsule PO PRN (14:48)
--- NOTE | 2019-06-19 15:41 | NUR ---
Nursing Progress Note: Legal hold: 5250 Client on involuntary status for DTS Report received from Suzanne WILLOUGHBY Why are they here: Client's sister is recently (one month ago). Client reports his current depression and thoughts of suicide began after his sisters . Client was in [employer] [facility] and discharged to the mission. He had been told that the mission would give him a bus ticket to [place], where the client owns the family home with his brother. Client reports his support system is in [place]. Client reported to D he was having SI with thoughts of hanging himself from a [address]. He was then brought to the ED by [employer]. Client has prior suicide attempts. He attempted to hang himself and was found by his brother. Client also has a hx of cutting his arms. Hx substance use. Drinks 1/5th Fireball Whiskey daily. Meth, THC, and opiate use. Denies ever having withdrawal symptoms. Assessment What has happened this shift: Pt up and visible on the unit. Pt affect bright and interactive majority of the shift. Pt did request medicine for anxiety x 2. The first time, pt was encouraged to attend group for the distraction which he did. The second time, pt was anxious r/t thinking about his discharge and requested haldol and benadryl which was given. Pt denies a/v hallucinations and denies suicidal thoughts. S/I, H/I: Denies A/VH: Denies ADL's: Independent Group attendance: yes Were Meds taken: Yes Any med S/E: None reported or observed Mental Status Exam: Appearance: Neat and clean Eye contact: Direct Behavior: Cooperative, pacing the halls, socializing on unit. Speech: Normal rate, rhythm and volume Mood: Affect: Animated Thought process: Linear Thought content: getting home Insight: Poor to fair Judgment: Poor INTERVENTIONS: PRN's used: Nicitine Lozenges Therapeutic interventions: provided therapeutic communication and active listening, medication administration/education/monitoring, encouraged to attend groups and shower, monitored Q15min for safety. Restraints/seclusion/emergency medication: N/A. Justification of Continued Inpatient Treatment: Client scored high on lethality assessment. Client appears very depressed and can not contract for safety at this time.
[2019-06-19 20:00] VITALS: BP 136/87
[2019-06-19] MEDS: quetiapine 100mg tablet PO SCH (20:22)
--- NOTE | 2019-06-20 03:06 | NUR ---
Nursing Progress Note: Legal hold: 5250 Client on involuntary status for DTS Report received from FARTUN Harris via SBAR Why are they here: Client's sister is recently (one month ago). Client reports his current depression and thoughts of suicide began after his sisters . Client was in [employer] [facility] and discharged to the mission. He had been told that the mission would give him a bus ticket to [place], where the client owns the family home with his brother. Client reports his support system is in [place]. Client reported to D he was having SI with thoughts of hanging himself from a [address]. He was then brought to the ED by [employer]. Client has prior suicide attempts. He attempted to hang himself and was found by his brother. Client also has a hx of cutting his arms. Hx substance use. Drinks 1/5th Fireball Whiskey daily. Meth, THC, and opiate use. Denies ever having withdrawal symptoms. Assessment What has happened this shift: Pt bright and engaging with both peers and staff. Walking halls and attended snack. Pt states his depression and anxiety are much improved and that he is ready to go back home. Pt retired to bed shortly after medication administration. S/I, H/I: Denies A/VH: Denies ADL's: Independent Group attendance: N/A Were Meds taken: Yes Any med S/E: None reported or observed Mental Status Exam: Appearance: Neat and clean, wearing green scrubs Eye contact: Direct Behavior: Cooperative, pacing the halls, watching TV Speech: Normal rate, rhythm and volume Mood: Depressed 2/10, Anxious 3/10 Affect: Animated Thought process: Linear Thought content: looking forward to getting back to work and getting home Insight: Good Judgment: Good INTERVENTIONS: PRN's used: Nicotine lozenge Therapeutic interventions: provided therapeutic communication and active listening, medication administration/education/monitoring, encouraged to attend groups and shower, monitored Q15min for safety. Restraints/seclusion/emergency medication: N/A Justification of Continued Inpatient Treatment: Client scored high on lethality assessment. Client still managing anxiety but ready to discharge Wednesday or Wednesday per MD/SW notes.
[2019-06-20] MEDS: naproxen 500mg tablet PO PRN ×2 (07:21→17:27)
[2019-06-20] MEDS: NICOTINE POLACRILEX 2 MG LOZENGE BC PRN ×2 (07:21→19:51)
[2019-06-20] MEDS: lisinopril 20mg tablet PO SCH (07:23)
[2019-06-20] MEDS: nicotine 21mg patch - 24 hr TD SCH (07:23)
[2019-06-20] MEDS: buPROPion 100mg tablet PO SCH ×2 (07:23→12:08)
[2019-06-20] MEDS: omega-3 acid ethyl esters 1GM capsule PO SCH ×2 (07:23→20:00)
[2019-06-20 08:00] VITALS: BP 124/73
[2019-06-20] MEDS: haloperidol 5mg tablet PO PRN (10:09)
[2019-06-20] MEDS: diphenhydrAMINE 25mg capsule PO PRN ×2 (10:09→16:58)
--- NOTE | 2019-06-20 15:42 | NUR ---
DISCHARGE PLANNING: SW received return contact from March regarding pt bus ticket. March reports she will purchase pt's ticket on 06/21/2019 and coordinate pt discharge shortly after. Jelena Bowen, Surgery Scheduling Coordinator ADMINISTRATIVE SERVICES MANAGER [id number] Supervised by Dave Barth, [id number]
--- NOTE | 2019-06-20 17:12 | NUR ---
Nursing Progress Note: Legal hold: 5250 Client on involuntary status for DTS Report received from FARTUN Ramires w/use of SBAR Why are they here: Client's sister is recently (one month ago). Client reports his current depression and thoughts of suicide began after his sisters . Client was in [employer] and discharged to the mission. He had been told that the mission would give him a bus ticket to [place], where the client owns the family home with his brother. Client reports his support system is in [place]. Client reported to D he was having SI with thoughts of hanging himself from a [address]. He was then brought to the ED by [employer]. Client has prior suicide attempts. He attempted to hang himself and was found by his brother. Client also has a hx of cutting his arms. Hx substance use. Drinks 1/5th Fireball Whiskey daily. Meth, THC, and opiate use. Denies ever having withdrawal symptoms. Assessment What has happened this shift: Client sleeping at start of shift. Client paces the halls and makes phone calls throughout the shift. His discharge plan was changed and he took the delay well. Pt request Nicotine lozenges, Haldol and Benadryl throughout the shift for "anxiety." S/I, H/I: Denies A/VH: Denies ADL's: Independent Group attendance: Yes Were Meds taken: Yes Any med S/E: None reported or observed Mental Status Exam: Appearance: Neat and clean, wearing green scrubs Eye contact: Direct Behavior: Cooperative, pacing the halls Speech: Normal rate, rhythm and volume Mood: Anxious Affect: Animated Thought process: Linear Thought content: on getting discharged and taking the bus home Insight: Good Judgment: Good INTERVENTIONS: PRN's used: Nicotine lozenge, Haldol x2 and Benadryl x2 Therapeutic interventions: provided therapeutic communication and active listening, medication administration/education/monitoring, encouraged to attend groups and shower, monitored Q15min for safety. Restraints/seclusion/emergency medication: N/A Justification of Continued Inpatient Treatment: Client scored high on lethality assessment. Client still managing anxiety but ready to discharge Wednesday or Wednesday per MD/SW notes.
[2019-06-20] MEDS: quetiapine 100mg tablet PO SCH (20:01)
[2019-06-20 20:34] VITALS: BP 136/71
--- NOTE | 2019-06-20 23:39 | NUR ---
Nursing Progress Note: Legal hold: 5250 Client on involuntary status for DTS Report received from FARTUN Ramires w/use of SBAR Why are they here: Client's sister is recently (one month ago). Client reports his current depression and thoughts of suicide began after his sisters . Client was in [employer] and discharged to the mission. He had been told that the mission would give him a bus ticket to [place], where the client owns the family home with his brother. Client reports his support system is in [place]. Client reported to [employer] he was having SI with thoughts of hanging himself from a [address]. He was then brought to the ED by [employer]. Client has prior suicide attempts. He attempted to hang himself and was found by his brother. Client also has a hx of cutting his arms. Hx substance use. Drinks 1/5th Fireball Whiskey daily. Meth, THC, and opiate use. Denies ever having withdrawal symptoms. Assessment What has happened this shift: Pt up in halls at start of shift. Immediately requested HS meds. Explained he would have till wait till after 8 o'clock. Until meds were given Pt reminded staff several times in a joking manner that he wanted his meds early. Pt has formed frienship with his roomate. The two of them pace the halls together and sit together in group room. Pt is looking forward to discharge on . S/I, H/I: Denies A/VH: Denies ADL's: Independent Group attendance: Yes Were Meds taken: Yes Any med S/E: None reported or observed Mental Status Exam: Appearance: Neat and clean, wearing green scrubs Eye contact: Direct Behavior: Cooperative, pacing the halls Speech: Normal rate, rhythm and volume Mood: Cheerful Affect: Animated Thought process: Linear Thought content: on getting discharged and taking the bus home Insight: Good Judgment: Good INTERVENTIONS: PRN's used: Nicotine lozenge, Therapeutic interventions: provided therapeutic communication and active listening, medication administration/education/monitoring, encouraged to attend groups and shower, monitored Q15min for safety. Restraints/seclusion/emergency medication: N/A Justification of Continued Inpatient Treatment: Client scored high on lethality assessment. Client still managing anxiety but ready to discharge Wednesday or Wednesday per MD/SW notes.
[2019-06-21] MEDS: naproxen 500mg tablet PO PRN ×2 (07:13→17:00)
[2019-06-21] MEDS: nicotine 21mg patch - 24 hr TD SCH (07:42)
[2019-06-21] MEDS: buPROPion 100mg tablet PO SCH ×2 (07:43→12:06)
[2019-06-21] MEDS: omega-3 acid ethyl esters 1GM capsule PO SCH ×2 (07:43→18:44)
[2019-06-21] MEDS: lisinopril 20mg tablet PO SCH (07:43)
[2019-06-21 08:00] VITALS: BP 127/81
[2019-06-21] MEDS: NICOTINE POLACRILEX 2 MG LOZENGE BC PRN ×3 (12:06→17:27)
--- NOTE | 2019-06-21 12:17 | NUR ---
DISCHARGE 033 ON 06/22/2019: SW received message from [facility]ia [facility] at [facility], providing confirmation number of bus ticket for pt to discharge to [facility] at 03:30 hours on 06/22/2019. [facility] is scheduled to clam picker pt from main lobby at 03:30hours to transport pt to bus station. Jelena Bowen, Cloud Engagement Partner DIRECTOR E LEARNING [id number] Supervised by Dave Barth, [id number]
[2019-06-21] MEDS: haloperidol 5mg tablet PO PRN (14:12)
[2019-06-21] MEDS: diphenhydrAMINE 25mg capsule PO PRN (14:12)
--- NOTE | 2019-06-21 15:00 | NUR ---
PO intake 75-100% of regular diet, meeting needs. Recommend: 1. continue regular diet 2. bowel care as needed if constipation 3. weekly weights Addendum: 06/21/19 at [address] Amended: Links added.
--- NOTE | 2019-06-21 18:09 | NUR ---
Nursing Progress Note: Legal hold: 5250 Client on involuntary status for DTS Report received from FARTUN Ramires w/use of SBAR Why are they here: Client's sister is recently (one month ago). Client reports his current depression and thoughts of suicide began after his sisters . Client was in [employer] and discharged to the mission. He had been told that the mission would give him a bus ticket to [place], where the client owns the family home with his brother. Client reports his support system is in [place]. Client reported to D he was having SI with thoughts of hanging himself from a [address]. He was then brought to the ED by [employer]. Client has prior suicide attempts. He attempted to hang himself and was found by his brother. Client also has a hx of cutting his arms. Hx substance use. Drinks 1/5th Fireball Whiskey daily. Meth, THC, and opiate use. Denies ever having withdrawal symptoms. Assessment What has happened this shift: Client sleeping at start of shift. Client paces the halls with his roommate. He is too discharge @ 0330. Per MD suarez to give PM meds an hour earlier. S/I, H/I: Denies A/VH: Denies ADL's: Independent Group attendance: Yes Were Meds taken: Yes Any med S/E: None reported or observed Mental Status Exam: Appearance: Neat and clean, wearing green scrubs Eye contact: Direct Behavior: Cooperative, pacing the halls Speech: Normal rate, rhythm and volume Mood: Anxious Affect: Animated Thought process: Linear Thought content: on getting discharged and taking the bus home Insight: Good Judgment: Good INTERVENTIONS: PRN's used: Nicotine lozenge, Haldol x2 and Benadryl x2 Therapeutic interventions: provided therapeutic communication and active listening, medication administration/education/monitoring, encouraged to attend groups and shower, monitored Q15min for safety. Restraints/seclusion/emergency medication: N/A Justification of Continued Inpatient Treatment: Client scored high on lethality assessment. Client still managing anxiety but ready to discharge Wednesday or Wednesday per /DELVIN notes.
[2019-06-21] MEDS: quetiapine 100mg tablet PO SCH (18:45)
[2019-06-21 20:35] VITALS: BP 132/86
--- NOTE | 2019-06-22 03:26 | NUR ---
No wounds on admit/ no discharge wound pics taken. Addendum: 06/22/19 at 0329 by Mary Bernal RN Amended: Links added.
--- NOTE | 2019-06-22 03:30 | NUR ---
DISCHARGE NOTE: The patient was discharged and left unit at 0315. Pt was escorted to the lobby where a [employer] taxi picked pt up and took him to the bus station. Pt received a bus ticket from [facility] back to [place] where pt resides. Pt left with all belongings, medications and instructions. Pt verbalized understanding and state "I am happy I am going home." Denies suicidal thoughts and is able to understand instructions.
== END 2019-06-22 03:15 | disposition home or self-care (01) | DRG 751 ==
LOC: ADULT MH 20:25
PROVIDERS: ADMIT Psychiatry & Neurology Psychiatry; ATTEND Psychiatry & Neurology Psychiatry
DX: F33.2 Major depressive disorder, recurrent severe without psychotic features (principal); R45.851 Suicidal ideations; F15.10 Other stimulant abuse, uncomplicated; I10 Essential (primary) hypertension; E78.1 Pure hyperglyceridemia; F17.200 Nicotine dependence, unspecified, uncomplicated; F10.10 Alcohol abuse, uncomplicated; F43.12 Post-traumatic stress disorder, chronic; F12.90 Cannabis use, unspecified, uncomplicated; M25.562 Pain in left knee; F43.10 Post-traumatic stress disorder, unspecified; Z62.810 Personal history of physical and sexual abuse in childhood; Z79.899 Other long term (current) drug therapy; Z81.1 Family history of alcohol abuse and dependence; Z83.3 Family history of diabetes mellitus; Z83.79 Family history of other diseases of the digestive system; Z59.0 Homelessness; Z90.49 Acquired absence of other specified parts of digestive tract
CPT/HCPCS: 36415; 80061; 83036; 87081; Q0163; Z7610